=== PATIENT | male | born 1955 | race Caucasian/White ===

== ENCOUNTER 2021-02-12 12:46 | Inpatient (IN) | payer OTHER, MEDICARE, SELFPAY ==
[2021-02-12] VITALS (13 sets, daily range): BP systolic 92–140; BP diastolic 65–113; PULSE 102–132; RESP 18–24; TEMP 36.6–36.9; O2SAT 90–97; BMI 29.7
--- NOTE | ~2021-02-12 | XR_ITS ---
EXAMINATION: XR chest 1V portable DATE: 02/13/2021 05:32 INDICATION: New oxygen requirement. TECHNIQUE: A single frontal view of the chest was obtained. COMPARISON: Chest single view 02/12/2021 FINDINGS: There are interstitial opacities and heterogeneous airspace opacities throughout the lungs bilaterally. No pleural effusion or pneumothorax. Cardiomegaly is noted. IMPRESSION: 1. Stable diffuse lung disease, consistent with pulmonary edema versus pneumonia. 2. Cardiomegaly. Reviewed, dictated and finalized at location A. IMPRESSION: 1. Stable diffuse lung disease, consistent with pulmonary edema versus pneumoni a. 2. Cardiomegaly.
--- NOTE | ~2021-02-12 | XR_ITS ---
EXAMINATION: XR chest 2V EXAM DATE: 02/15/2021 10:49 INDICATION: Volume overload . TECHNIQUE: Frontal and lateral projections of the chest obtained and reviewed. Comparison is made to prior examination from 02/13/2021, 02/12. FINDINGS: Again there is cardiomegaly and pulmonary vascular congestion. There has been interval impr ovement in previously seen diffuse airspace disease which could've been edema or pneumonia, please cl inically correlate. No pneumothorax or pleural effusion. IMPRESSION: 1. Improving edema or pneumonia. 2. Cardiomegaly. Reviewed, dictated and finalized at location A.
--- NOTE | ~2021-02-12 | US_ITS ---
EXAMINATION: US arterial duplex LE RT EXAM DATE: 02/15/2021 11:12 INDICATION: Hematoma post cardiac cath Post cardiac cath. Pseudoaneurysm evaluation. TECHNIQUE: Multiple grayscale and Doppler images of the inguinal common femoral artery catheterizatio n site were obtained (by a technologist who performed the scan) and subsequently reviewed. There is no prior study for comparison. FINDINGS: Right common femoral vein has expected triphasic high resistance waveform. Some heterogeneous regiona l fat stranding without focal hematoma, or pseudoaneurysm. There is a right inguinal lymph node annot ated area of lump measuring 1.3 x 0.8 x 1.2 cm. This is probably reactive. IMPRESSION: 1. Small reactive right inguinal lymph node. 2. Normal right common femoral Doppler signal without pseudoaneurysm. Reviewed, dictated and finalized at location A.
--- NOTE | ~2021-02-12 | XR_ITS ---
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 TECHNIQUE: Portable AP frontal chest x-ray was obtained. There is no prior study for comparison. FINDINGS: There is cardiomegaly and pulmonary vascular congestion. Diffuse indistinct reticulation, e shiva or pneumonia. No sizable pleural effusion. No pneumothorax. There are bony degenerative changes. IMPRESSION: 1. Cardiomegaly, pulmonary vascular congestion. 2. Diffuse airspace disease, edema or pneumonia. Reviewed, dictated and finalized at location B.
--- NOTE | 2021-02-12 12:43 | PC.NURSE ---
1243 Pt arrives. section laborer at bedside. 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 Two hours prior to calling EMS (11 AM), pt had chest pain that is progressively worse. Now radiating down left arm. Pain between shoulder blades comes and goes. EMS reports elevation in V3 and V4. Hx of [place] and TIAs. Gave 324 aspirin, 2 sprays of nitro with no relief. Hx of previous MIs 1246: EKG taken. Reviewed by laboratory machinist. Vitals: HR 120, Spo2 97%, RR 20, BP: 140/113 1248: Pt reporting severe chest pain, pain in shoulders, pain down his arms. Pt unsure of year of previous heart attack. 1250: Pt being prepped by section laborer. Denies allergies.
--- NOTE | 2021-02-12 12:51 | ECG_ITS ---
Measurements Intervals [place] Rate: 117 P: -48 MD: 148 QRS: 132 QRSD: 151 T: 44 QT: 358 QTc: 501 Interpretive Statements SINUS TACHYCARDIA INDETERMINATE AXIS RIGHT BUNDLE BRANCH BLOCK ANTEROLATERAL ST ELEVATION MYOCARDIAL INFARCT- ACUTE INFERIOR INFARCT, AGE INDETERMINATE BASELINE ARTIFACT- II, III, AVF, V4-V6 ATYPICAL ECG Electronically Signed On 02-12-2021 13:04:30 CDT by Mino Crisostomo D.O.
--- NOTE | 2021-02-12 12:52 | ED.CHESTPAIN ---
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 [place] History of previous [place] years ago, does not believe he had any stents, does not take any medications Here for chest pain Prehospital EKGs consistent with anterior STEMI and was met by Rotor Casting Machine Setup Operator and cardiology on arrival Reported onset of severe chest pain about 2 hours ago while he was sitting in his truck getting ready to take off Radiates to his back and a little bit to his arm Mildly short of breath, mildly nauseated, not diaphoretic Related Data Allergies Allergy/AdvReac Type Severity Reaction Status Date / Time No Known Allergies Allergy Verified 02/12/21 12:51 Review of Systems Review of Systems: ROS unobtainable: Yes unobtainable due to medical condition Cardiovascular: Cardiovascular: Reports chest pain and Reports radiating jaw, neck or arm pain Respiratory: Respiratory: Reports dyspnea Exam Const: General: alert Orientation/consciousness: patient oriented x3 Chest: Chest palpation & inspection: normal inspection of the chest Other: No scar Resp: Effort & Inspection: tachypneic Auscultation: clear to auscultation bilaterally Cardio: Rate: tachycardic Skin: General skin exam: normal color and no pallor Neuro: General: patient oriented x3 and moves all extremities Extrem: General: normal to inspection and no edema Course Course Emergency Course: Rotor Casting Machine Setup Operator here, EKG confirms anterolateral ST elevation, consented and promptly off to the Rotor Casting Machine Setup Operator MDM - Chest Pain ECG Data EKG #1: EKG Interpretation: tachycardia, sinus rhythm, ST elevation (Anterolateral), RBBB, normal QT and NL axis Critical Care Time Critical Care Time Critical Care Time: Yes Total Critical Care Time: 20 Discharge Plan Discharge Clinical Impression: ST elevation myocardial infarction (STEMI) Patient Disposition: Still a Patient Condition: Critical
--- NOTE | 2021-02-12 12:56 | PC.NURSE ---
PT TAKEN TO CORE PASTER PER RN'S X2.
[2021-02-12 13:01] LABS: Basophils Percent Auto 0.3 % (0.2-1.2); Eosinophils Percent Auto 0.1 % (0-4.4); Hematocrit 46.2 % (42.0-52.0); Hemoglobin 16.1 g/dL (14.0-18.0); Immature Granulocyte Absolute 0.05 K/mm3 (0.00-0.031); Immature Granulocyte Percent A 0.4 % (0-0.5); Lymphocytes Absolute Auto 0.76 K/mm3 (0.9-3.2); Lymphocytes Percent Auto 6.4 % (18.3-44.2); Mean Corpuscular HGB Conc 34.8 g/dl (32-36); Mean Corpuscular Hemoglobin 32.7 pg (26-34); Mean Corpuscular Volume 93.9 fl (80-100); Mean Platelet Volume 9.6 fl (7.4-10.4); Monocytes Absolute Auto 0.6 K/mm3 (0.1-0.6); Monocytes Percent Auto 4.8 % (2.6-8.5); Neutrophils Absolute Auto 10.5 K/mm3 (1.3-6.7); Platelet Count Result 213 k/mm3 (150-375); Red Blood Count 4.92 M/mm3 (4.6-6.20); Red Cell Distribution Width 13.4 % (11.5-14.5); White Blood Count 11.9 K/mm3 (4.5-10.0)
[2021-02-12 13:13] LABS: Alanine Aminotransferase 23 U/L (4-50); Albumin Level 4.4 g/dL (3.5-5.1); Alkaline Phosphatase 69 U/L (38-126); Anion Gap 11 mmol/L (8-16); Aspartate Amino Transferase 66 U/L (17-59); Bilirubin,Total 0.6 mg/dL (0.2-1.3); Blood Urea Nitrogen 9 mg/dL (9-20); Calcium 9.1 mg/dL (8.4-10.2); Carbon Dioxide 25 mmol/L (22-30); Chloride 102 mmol/L (98-107); Cholesterol 218 mg/dL (0-200); Estimated Glomerular Filt Rate > 60; Glucose 133 mg/dL (65-110); HDL Direct 51 mg/dL; Potassium 3.4 mmol/L (3.4-5.0); Sodium 138 mmol/L (137-145); Triglycerides 63 mg/dL (<150)
[2021-02-12 13:24] LABS: LDL Cholesterol Direct 149 mg/dL
[2021-02-12 13:31] LABS: INR 1.6; Prothrombin Time 18.8 Seconds (11.1-14.7)
[2021-02-12 13:32] LABS: Partial Thromboplastin Time 74.5 SECONDS (22.3-36.8)
--- NOTE | 2021-02-12 14:26 | ECG_ITS ---
Measurements Intervals [place] Rate: 120 P: 30 OR: 165 QRS: 177 QRSD: 148 T: 35 QT: 335 QTc: 475 Interpretive Statements SINUS TACHYCARDIA RIGHT AXIS DEVIATION RIGHT BUNDLE BRANCH BLOCK EXTENSIVE ANTERIOR INFARCT, AGE INDETERMINATE INFERIOR INFARCT, AGE INDETERMINATE ABNORMAL ECG Electronically Signed On 02-12-2021 16:00:40 CDT by Mino Crisostomo D.O.
--- NOTE | 2021-02-12 14:31 | PM.IMHP ---
H&P: HPI History of Present Illness Date/Time: 02/12/21 14:31 Chief Complaint: chest pain Narrative: this is a 66-year-old man who is unknown to be prior to this encounter. I am meeting him in the emergency room as he was brought in by ambulance with the diagnosis of acute ST-elevation TX. 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 EMS was called to the scene where ECG in the field shows sinus tachycardia, right bundle branch block and anterior ST segment elevation. As I meet him in the emergency room he is in significant distress with chest pain and offers no other complaints. The patient states that he has a history of previous myocardial infarction many years ago that was treated in [place] where he resides but strangely he tells me he never had a coronary angiogram performed or any revascularization procedure of any sort. We do not have a obviously have any of those records at the time of this emergency. He states he takes no medication of any kind he is a nonsmoker and denies any knowledge of hypertension and diabetes he has no idea about his lipid status. Review of Systems Review of Systems: ROS unobtainable: Yes unobtainable due to medical condition Meds Home Medications and Allergies Allergies Allergy/AdvReac Type Severity Reaction Status Date / Time No Known Allergies Allergy Verified 02/12/21 12:51 Vital Signs Vital Signs - 24 hr 02/12/21 12:57 Pulse Rate 120 H Respiratory Rate 20 Blood Pressure 140/113 H Pulse Oximetry 97 Exam Const: General: in distress and uncomfortable Other: Well-developed well-nourished overweight white male appearing his stated age in significant distress with chest pain HENMT: Mouth: Yes moist mucous membranes Eyes: Sclera: sclerae normal Pupils: Equal, round and reactive pupils present Neck: Neck: supple and no JVD Other: carotid pulses are intact free of bruits Resp: Effort & Inspection: normal respiratory effort Auscultation: clear to auscultation bilaterally Cardio: Rate: regular rate Rhythm: regular rhythm Other: PMI difficult to palpate there is 2nd heart sounds are normal S4 is evident very soft systolic murmur does not radiate from the left sternal border GI: GI Palp: Yes Soft to palpation Auscultation: normal bowel sounds Skin: General skin exam: normal color Neuro: Cognition (Neuro): normal cognition Other: patient agitated and anxious because of chest pain Extrem: General: normal to inspection H&P: Results Labs Labs: Short CBC 02/12/21 Range/Units 12:55 WBC 11.9 H (4.5-10.0) K/mm3 Hgb 16.1 (14.0-18.0) g/dL Hct 46.2 (42.0-52.0) % Plt Count 213 (150-375) k/mm3 BMP 02/12/21 12:55 Sodium 138 Potassium 3.4 Chloride 102 Carbon Dioxide 25 BUN 9 Creatinine 0.90 Glucose 133 H Calcium 9.1 Cardiac Enzymes 02/12/21 Range/Units 12:55 Troponin I 3.740 H* (0.000-0.034) ng/mL Liver Function 02/12/21 Range/Units 12:55 Total Bilirubin 0.6 (0.2-1.3) mg/dL AST 66 H (17-59) U/L ALT 23 (4-50) U/L Alkaline Phosphatase 69 (38-126) U/L Albumin 4.4 (3.5-5.1) g/dL Assessment and Plan Additional Plan this is a 66-year-old man with an uncertain cardiac history as detailed above presenting with recent onset of chest pain being brought in with ECG evidence acute anterior wall infarction. Plans are being made for emergency angiography and revascularization at this time. Beto Pandya MD [facility]
--- NOTE | 2021-02-12 14:35 | PC.NURSE ---
Patient arrived via bed with RN x2 to beside. Right groin site assessed with pathology laboratory director RN. No issues noted.
--- NOTE | 2021-02-12 14:35 | WPDCARDPROC ---
Cardiac Cath Procedure Note Date of procedure:: 02/12/21 Performing physician:: Beto Pandya MD Indication:: acute anterior wall W[place] Brief clinical history:: this is a 66-year-old man who reports a history of previous [place] this validity of which is in question. He started to experience chest pain about an hour ago was brought in by ambulance with an ECG that is compatible with acute anterior wall injury. Troponin in the emergency room was already elevated at over 3.0 indicating this is probably not a hyperacute Event. In this setting emergency angiography and revascularization have been recommended Procedure Procedure performed:: emergency coronary angiogram emergency PCI balloon angioplasty, extraction thrombectomy and (DIEGO) to the LAD left ventriculography Sedation/Medication given:: fentanyl 50 mg Versed 2 mg case start time 1:05 p.m. case end time 2:07 p.m. sedation provided by Erma Reich RN, trained observer Access site:: right femoral artery Estimated blood loss:: 20-30 cc Procedure note:: patient was brought to the cardiac catheterization lab in the emergency setting described above the right femoral triangle was prepped and draped in the usual fashion. Using the modified Seldinger technique the femoral artery was punctured and a 6 [place]ian vascular sheath was placed. I then used a 5 [place]ian JR4 catheter to engage inject the right coronary artery and then a 5 [place] FL4 catheter to engage inject the left coronary artery. The cineangiograms were then reviewed and PCI of the LAD was recommended and carried out as detailed below. Prior to PCI the patient received Brilinta 180 mg orally. He had been given aspirin in the emergency room. He also was systemically anticoagulated with bolus and infusion of Angiomax. During the procedure he also was given intracoronary, intravenous and started on IV infusion of Integrilin. The patient following PCI had left ventriculography performed in left-sided hemodynamics measured using a 5 [place]ian angled pigtail catheter. 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 There was no evidence of a groin hematoma at the end of the case. Findings:: Hemodynamics: Central aortic pressure was 136/75 left ventricle 138/5 end-diastolic pressure 34. There was no gradient on pullback across the aortic valve. Left ventricle: The LV is moderately enlarged the apical anterior wall and apex appear to be dyskinetic. The catheter was in the basal segment of the ventricle full filling of apex was not ideal. Global ejection fraction appears to be in the vicinity of 40%. The left main coronary artery is large in caliber and appears to be nicely patent the left anterior descending is very large and diffusely diseased with ectatic dilatation in the proximal 1/3. There are couple of small diffusely diseased diagonal branches in this segment. Just after this the LAD becomes much more normal in diameter and is 100% occluded in the midportion. The circumflex is a medium caliber artery giving rise to 3 marginal branches. The 1st of these are very high and has moderate stenosis 1 segment where there is about 50-60% stenosis. The 2nd and 3rd marginal branches are remarkable for minimal luminal irregularities but no significant lesions. The right coronary artery is huge in caliber is diffusely ectatic lead dilated because of atherosclerosis and ectatic dilatation. There however is no functionally significant stenosis in the RCA proper or the distal PDA and PL branches. Intervention: The left coronary artery was engaged using a 6 [place]ian CLS 3.5 guiding catheter. I used a standard 0.014 BMW coronary guidewire to probe the occlusion and traverse the wire down into the apical portion of the LAD. I then balloon dilated the vessel using a 2.5 x 20 mm
--- NOTE | 2021-02-12 14:36 | WPDCNINT ---
Assessment and Plan Assessment and plan (1) ST elevation myocardial infarction (STEMI): Code(s): I21.3 - ST elevation (STEMI) myocardial infarction of unspecified site Status: Acute Assessment and Plan: Status post complicated PCI of LAD and stent placed ICU telemetry monitoring Aspirin, Brilinta Coreg losartan and Crestor Currently on Integrilin infusion as per cardiology Patient still have some residual pain. I will use p.r.n. nitroglycerin and see patient response and will consider starting patient on nitroglycerin infusion. Also add p.r.n. morphine (2) CHF (congestive heart failure): Code(s): I50.9 - Heart failure, unspecified Status: Acute Assessment and Plan: LV gram during cardiac catheterization showed impaired systolic function and elevated LVEDP (3) Pulmonary edema: Code(s): J81.1 - Chronic pulmonary edema Status: Acute Assessment and Plan: Chest x-ray shows pulmonary edema Lasix ordered Check BNP (4) Ischemic cardiomyopathy: Code(s): I25.5 - Ischemic cardiomyopathy Status: Acute Additional Plan DVT prophylaxis -currently on Integrilin infusion Code Status - Full Code [place] Consult Note Consult date: 02/12/21 Time Seen: 14:30 HPI: Jeancarlos Goff 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 Pain started while he was sitting in the truck. Pain was in center of his chest, 10/10 severe, pressure in quality, radiated to his left arm and back. Pain was associated with nausea vomiting and dizziness. No shortness of breath or palpitation. He states he had 2 episodes of vomiting in the truck In ED patient was diagnosed with anterior acute ST segment elevation [place]. he is EKG showed anterior ST segment elevation and right bundle branch block along with elevated troponin. patient was taken to cardiac catheterization lab where he underwent prolonged and complicated procedure involving PCI of his LAD which resulted in open vessel but less than ideal flow. Patient now admitted to ICU for further evaluation and management. At this time patient states the pain in his chest has completely resolved but he still has pain in the back in between his shoulder blades. Pain is 8/10 severe but is improving as compared to presentation. Still has some nausea but no vomiting since coming to hospital. Denies any other complaints. All other systems were reviewed and were negative Home medications-none Past medical history-patient states he had episode of chest pain and was taken to hospital where a stress test on although he is not sure. Currently he is not on any treatment or medications Past surgical history-inguinal hernia repair and shoulder ligament tear repair Social history-denies smoking, no drug use in 70s, occasional alcohol, vaccinated against COVID-19 Family history-mother had some sort of cancer and father had stroke Review of Systems Review of Systems: All systems reviewed & are unremarkable except as noted in HPI and below (HPI) Meds Home Medications and Allergies Allergies Allergy/AdvReac Type Severity Reaction Status Date / Time No Known Allergies Allergy Verified 02/12/21 12:51 Vital Signs Vital Signs - 24 hr 02/12/21 12:57 Pulse Rate 120 H Respiratory Rate 20 Blood Pressure 140/113 H Pulse Oximetry 97 Exam Narrative: General: Pt is alert awake and in NAD Lungs/Chest: Trachea central Clear BS B/L, bibasilar crackles., no wheezing. Cardiac: RRR. Normal S1 S2. No murmurs Circulation: Pedal pulses are intact and symmetrical. Abdomen: Normal bowel sounds.. Soft. NT. ND. Extremities: No clubbing, cyanosis or edema. Warm, sheath in right femoral area, trace pitting edema in both legs : Weber in place Neurologic: Follows commands. Moves all 4 extremities PERRL Skin: No Rash HEENT: Poor dentition Results Labs CBC & Chem 7: 02/12/21 12:55 02/12/21 12:55
--- NOTE | 2021-02-12 14:50 | ADMGEN ---
This patient, Jeancarlos Goff, was admitted to Intensive Care Unit-10. Patient/family oriented to hospital policies and general routines including ID bracelet, bed and alarms, visiting hours, pain management, procedures, bathroom and other care routines, personal items, smoking policy, room service/diet, and visiting hours. Information on how to activate the Rapid Response Team has been discussed. Patient/Family are encouraged to report perceived risks to care and to ask questions if they do not understand what they are told or what they should do.
[2021-02-12] MEDS: NITROGLYCERIN SL 0.4 MG TABLET SUBLINGUAL (15:07)
[2021-02-12] MEDS: FUROSEMIDE INJ 40 MG/4 ML VIAL IV PUSH (15:07)
[2021-02-12] MEDS: SODIUM CHLORIDE 0.9% IV 1,000 ML 125 ML IV CONT (15:11)
[2021-02-12 15:36] LABS: Cholesterol 192 mg/dL (0-200); HDL Direct 46 mg/dL; Triglycerides 57 mg/dL (<150)
[2021-02-12 15:45] LABS: NT Pro B Type Natriuretic Pept 339 pg/mL (5-100)
[2021-02-12 15:47] LABS: LDL Cholesterol Direct 134 mg/dL
[2021-02-12] MEDS: ONDANSETRON INJ 4 MG/2 ML VIAL IV PUSH (15:50)
--- NOTE | 2021-02-12 15:50 | PC.NURSE ---
Dr. Pandya notified of hematoma and bleeding at incision site.
[2021-02-12] MEDS: MORPHINE SULFATE (*CRX) 4 MG/ML INJ IV PUSH (15:58)
[2021-02-12 18:48] LABS: Troponin I > 80.000 ng/mL (0.000-0.034)
--- NOTE | 2021-02-12 19:31 | PC.NURSE ---
Updated Patricia on patient condition.
[2021-02-12] MEDS: TICAGRELOR 90 MG TABLET PO (21:42)
[2021-02-12] MEDS: carvediloL 6.25 MG TABLET PO (21:42)
[2021-02-12] MEDS: MORPHINE SULFATE (*CRX) 2 MG/ML INJ IV PUSH (21:48)
[2021-02-13] VITALS (16 sets, daily range): BP systolic 87–118; BP diastolic 49–76; PULSE 75–94; RESP 18–24; TEMP 36.2–37.3; O2SAT 91–100
--- NOTE | 2021-02-13 | ECHO_ITS ---
Patient Info Name: Jeancarlos Goff Age: 66 years : 1955 Gender: Male Ht: 69 in Wt: 201 lbs BSA: 2.13 m2 HR: 88 bpm BP: 97 / 70 mmHg Heart Rhythm: Sinus Rhythm Technical Quality: Good Exam Date: 02/13/2021 9:44 AM Exam Location: [facility] Patient Status: Inpatient Admit Date: 02/12/2021 Staff Ordering Physician: Jonnathan Mcmullen MD Wet End Supervisor: Nicole Malcolm RDCS Attending Provider: Beto Pandya MD Exam Type: CA echo doppler color flow Study Info Indications - STEMI Complete two-dimensional, color flow and Doppler transthoracic echocardiogram is performed. Summary 1. Complete two-dimensional, color flow and Doppler transthoracic echocardiogram is performed. 2. Left ventricular systolic function is severely reduced, estimated at 25-30%. 3. Left ventricular chamber dimension is mildly enlarged. 4. The anterior wall, anteroseptal segment apex and apical lateral rosales are akinetic. 5. There is trace mitral valve regurgitation. 6. The anterior mitral valve leaflet is thickened. Left Ventricle Left ventricular chamber dimension is mildly enlarged. Left ventricular systolic function is severely reduced, estimated at 25-30%. The left ventricular diastolic function is grade I diastolic dysfunction. The anterior wall, anteroseptal segment apex and apical lateral rosales are akinetic. Right Ventricle Right ventricular chamber dimension is normal. Left Atria Left atrial chamber dimension is mildly enlarged. Right Atria Right atrial chamber dimension is normal. Aortic Valve The aortic valve is trileaflet. There is mild aortic valve sclerosis. Pulmonic Valve The pulmonic valve is not well visualized. Mitral Valve The mitral valve has thickened leaflets. There is trace mitral valve regurgitation. The anterior mitral valve leaflet is thickened. Tricuspid Valve The tricuspid valve leaflets are normal. Pericardium/Pleural The pericardium appears normal. Aorta The aortic root size at the sinus of Valsalva is normal. Left Ventricular Outflow Tract Name Value Normal LVOT 2D LVOT Diameter 2.0 cm LVOT Doppler LVOT Peak Gradient 3 mmHg LVOT Mean Gradient 2 mmHg LVOT VTI 18 cm LVOT VTI/AV VTI Ratio 1.1 LVOT Stroke Volume 55 ml LVOT CO 4.6 l/min LVOT CI 2.1 l/min/m2 Pulmonic Valve Name Value Normal RVOT Doppler RVOT Peak Gradient 2 mmHg PV Doppler PV Peak Gradient 2 mmHg Mitral Valve Name
--- NOTE | 2021-02-13 05:11 | ECG_ITS ---
Measurements Intervals [place] Rate: 83 P: 6 [place]: 164 QRS: -59 QRSD: 157 T: 56 QT: 406 QTc: 479 Interpretive Statements SINUS RHYTHM FREQUENT ATRIAL PREMATURE COMPLEXES INDETERMINATE AXIS RIGHT BUNDLE BRANCH BLOCK EXTENSIVE ANTERIOR INFARCT, AGE INDETERMINATE INFERIOR INFARCT, AGE INDETERMINATE ABNORMAL ECG Electronically Signed On 02-13-2021 9:13:15 CDT by Mino Crisostomo D.O.
--- NOTE | 2021-02-13 06:22 | P.CDI_ITS ---
CDI Query Clarification Request -CHF, unspecified has been documented -EF 40% per cardiac cath report -02/12 CXR impression: Cardiomegaly, pulmonary vascular congestion; diffuse airspace disease, edema or pneumonia. -Lasix 40mg IV X1 given 02/12 Please further specify type and acuity of CHF: * Systolic *Acute * Diastolic *Chronic * Both systolic and diastolic *Acute on Chronic * Unable to determine *Unable to determine <Genie Olivo RN - Last Filed: 02/13/21 06:26>
[2021-02-13 08:41] LABS: Hematocrit 39.5 % (42.0-52.0); Hemoglobin 13.7 g/dL (14.0-18.0); Mean Corpuscular HGB Conc 34.7 g/dl (32-36); Mean Corpuscular Volume 95.2 fl (80-100); Platelet Count Result 203 k/mm3 (150-375); Red Blood Count 4.15 M/mm3 (4.6-6.20); White Blood Count 13.8 K/mm3 (4.5-10.0)
[2021-02-13] MEDS: ASPIRIN 81 MG CHEWABLE TABLET PO (08:58)
[2021-02-13] MEDS: carvediloL 6.25 MG TABLET PO ×2 (08:58→22:38)
[2021-02-13] MEDS: PANTOPRAZOLE 40 MG TABLET PO (09:00)
[2021-02-13] MEDS: ROSUVASTATIN 10 MG TABLET 20 MG PO (09:01)
[2021-02-13] MEDS: TICAGRELOR 90 MG TABLET PO ×2 (09:01→22:38)
[2021-02-13] MEDS: LOSARTAN POTASSIUM 25 MG TABLET PO (09:02)
[2021-02-13 09:41] LABS: Alanine Aminotransferase 68 U/L (4-50); Albumin Level 3.7 g/dL (3.5-5.1); Alkaline Phosphatase 53 U/L (38-126); Anion Gap 7 mmol/L (8-16); Aspartate Amino Transferase 340 U/L (17-59); Bilirubin,Total 1.2 mg/dL (0.2-1.3); Blood Urea Nitrogen 16 mg/dL (9-20); Calcium 8.6 mg/dL (8.4-10.2); Carbon Dioxide 31 mmol/L (22-30); Chloride 99 mmol/L (98-107); Estimated CRCL calculation 71 ml/min; Estimated Glomerular Filt Rate > 60; Glucose 120 mg/dL (65-110); Potassium 3.8 mmol/L (3.4-5.0); Sodium 137 mmol/L (137-145)
--- NOTE | 2021-02-13 09:41 | WPDINTPN ---
Progress Note: A&P Assessment and Plan (1) ST elevation myocardial infarction (STEMI): Code(s): I21.3 - ST elevation (STEMI) myocardial infarction of unspecified site Status: Acute Assessment and Plan: Status post complicated PCI of LAD and stent placed ICU telemetry monitoring Aspirin, Brilinta Coreg losartan and Crestor Sheath was removed yesterday Patient still have some residual pain. I will use p.r.n. nitroglycerin and p.r.n. morphine (2) CHF (congestive heart failure): Code(s): I50.9 - Heart failure, unspecified Status: Acute Assessment and Plan: Systolic. Acute LV gram during cardiac catheterization showed impaired systolic function and elevated LVEDP (3) Pulmonary edema: Code(s): J81.1 - Chronic pulmonary edema Status: Acute Assessment and Plan: Chest x-ray shows pulmonary edema Will give another dose of Lasix today BNP was 300+ (4) Ischemic cardiomyopathy: Code(s): I25.5 - Ischemic cardiomyopathy Status: Acute (5) Hematoma: Code(s): T14.8XXA - Other injury of unspecified body region, initial encounter Status: Acute Assessment and Plan: Small hematoma and bruise at the site of catheterization Hemoglobin reviewed this morning Will recheck again in 12 hours Additional Plan DVT prophylaxis -SCDs, patient will likely be able to ambulate if unable to will start Lovenox Code Status - Full Code FELIPA Weber, PT OT, incentive spirometry, up in chair Transfer out of ICU today Subjective Date/time seen: 02/13/21 09:41 Patient states he feels better today as compared to yesterday and his pain has improved but is still 3/10 in his back. He states he had nausea yesterday but currently not any issues. No chest pain or shortness of breath. He slept okay and is eager to eat his breakfast this morning. Denies any other complaints All other systems were reviewed and were negative. Sheath was removed overnight and he had a small hematoma around that area Review of Systems Review of Systems: All systems reviewed & are unremarkable except as noted in HPI and below (HPI) Exam Narrative: General: Pt is alert awake and in NAD Lungs/Chest: Trachea central Clear BS B/L, bibasilar crackles., no wheezing. Cardiac: RRR. Normal S1 S2. No murmurs Circulation: Pedal pulses are intact and symmetrical. Abdomen: Normal bowel sounds.. Soft. NT. ND. Extremities: No clubbing, cyanosis or edema. Warm, small bruise and very small hematoma at the site of she. : Weber in place Neurologic: Follows commands. Moves all 4 extremities PERRL Skin: No Rash HEENT: Poor dentition Objective Data Vital Signs Vital Signs: Vital Signs - 24 hr 02/12/21 12:57 02/12/21 14:41 02/12/21 15:11 Temperature 36.9 C Pulse Rate 120 H 118 H 126 H Respiratory Rate 20 24 H 18 Blood Pressure 140/113 H 122/86 106/83 Pulse Oximetry 97 92 90 02/12/21 15:30 02/12/21 16:00 02/12/21 16:11 Temperature 36.6 C Pulse Rate 120 H 132 H 117 H Respiratory Rate 18 24 H 22 H Blood Pressure 105/85 92/65 L 94/73 L Pulse Oximetry 90 91 91 02/12/21 17:00 02/12/21 18:00 02/12/21 18:30 Temperature Pulse Rate 115 H 111 H 113 H Respiratory Rate 21 H 19 20 Blood Pressure 107/76 104/85 97/74 L Pulse Oximetry 91 91 93 02/12/21 19:00 02/12/21 20:00 02/12/21 21:42 Temperature 36.6 C 36.8 C Pulse Rate 108 H 107 H 110 H Respiratory Rate 23 H 21 H Blood Pressure 111/83 105/82 Pulse Oximetry 94 94 02/12/21 22:00 02/13/21 00:00 02/13/21 02:00 Temperature 36.2 C L Pulse Rate 104 H 90 79 Respiratory Rate 21 H 20 18 Blood Pressure 98/80 L 90/70 L 99/61 L Pulse Oximetry 93 94 94 02/13/21 04:00 02/13/21 05:52 02/13/21 08:00 Temperature 36.8 C 36.8 C 36.5 C Pulse Rate 87 89 86 Respiratory Rate 21 H 21 H 18 Blood Pressure 91/68 L 97/70 L 87/68 L Pulse Oximetry 92 91 96 02/13/21 08:58 02/13/21 09:02 Temperature Pulse Rate 84 84 Respiratory Rate
[2021-02-13] MEDS: FUROSEMIDE INJ 40 MG/4 ML VIAL IV PUSH (10:36)
[2021-02-13 10:49] LABS: EDCOVIDSCREEN Negative (Negative)
--- NOTE | 2021-02-13 12:54 | PM.PNCARD ---
Progress Note: A&P Assessment and Plan (1) ST elevation myocardial infarction (STEMI): Code(s): I21.3 - ST elevation (STEMI) myocardial infarction of unspecified site Status: Acute Assessment and Plan: Presentation to the emergency department with acute onset of severe chest pain. EKG on presentation was compatible with acute anterior wall injury. He was taken to the cath lab tech emergently and was found to have 100% occlusion in the midportion of the LAD. There is also mild disease of proximal OM circumflex branch. The LAD lesion was addressed with balloon dilation, extraction thrombectomy, and a series of overlapping drug-eluting stents. Continue aspirin 81 mg daily Continue Brilinta 90mg b.i.d. Continue carvedilol 6.25 mg q.12 Continue losartan 25mg daily Continue rosuvastatin (2) CHF (congestive heart failure): Code(s): I50.9 - Heart failure, unspecified Status: Acute Assessment and Plan: Clinically does not appear to be in decompensated heart failure. Evidence of pulmonary edema today on chest x-ray. Was given 1 dose of IV Lasix. Echocardiogram showed severely reduced LV systolic dysfunction with an ejection fraction of 25-30%. He has grade 1 diastolic dysfunction. There is akinesis of the anterior wall, anteroseptal segment apex and apical lateral rosales. Ideally, I would like to start him on Entresto. However, his blood pressure does not allow for that right now. Consider starting this if blood pressure allows. Subjective Date/time seen: 02/13/21 12:54 cardiology follow-up Date of service 02/13/2021: Patient feels okay today. He is complaining of cough. Denies any shortness of breath, chest pain, and dizziness. On 3 L oxygen. Appropriate to transfer to IMU level of care. Review of Systems Review of Systems: All systems reviewed & are unremarkable except as noted in HPI and below Exam Const: General: comfortable and no acute distress HENMT: Head: normal to inspection Mouth: Yes moist mucous membranes Teeth and gingiva: poor dentition Eyes: General: appearance normal, both eyes and all related structures Sclera: sclerae normal Pupils: Equal, round and reactive pupils present Neck: Neck: supple and no JVD Other: carotid pulses are intact free of bruits Resp: Effort & Inspection: normal respiratory effort Auscultation: clear to auscultation bilaterally, no crackles and no rales Cardio: Rate: regular rate Rhythm: regular rhythm Peripheral pulses: Peripheral pulses 2+ throughout GI: Auscultation: normal bowel sounds Skin: General skin exam: normal color Other: Right groin left heart catheterization site with hematoma. No bleeding, swelling, pain, bruit Neuro: General: patient oriented x3 Cranial nerves: Yes Equal, round and reactive pupils present Cognition (Neuro): normal cognition Other: patient agitated and anxious because of chest pain Extrem: General: normal to inspection Right lower extremity: no edema Left lower extremity: no edema Psych: Appearance: grossly normal Mental Status: mental status grossly normal Objective Data Vital Signs Vital Signs: Vital Signs - 24 hr 02/12/21 12:57 02/12/21 14:41 02/12/21 15:11 Temperature 36.9 C Pulse Rate 120 H 118 H 126 H Respiratory Rate 20 24 H 18 Blood Pressure 140/113 H 122/86 106/83 Pulse Oximetry 97 92 90 02/12/21 15:30 02/12/21 16:00 02/12/21 16:11 Temperature 36.6 C Pulse Rate 120 H 132 H 117 H Respiratory Rate 18 24 H 22 H Blood Pressure 105/85 92/65 L 94/73 L Pulse Oximetry 90 91 91 02/12/21 17:00 02/12/21 18:00 02/12/21 18:30 Temperature Pulse Rate 115 H 111 H 113 H Respiratory Rate 21 H 19 20 Blood Pressure 107/76 104/85 97/74 L Pulse Oximetry 91 91 93 02/12/21 19:00 02/12/21 20:00 02/12/21 21:42 Temperature 36.6 C 36.8 C Pulse Rate 108 H 107 H 110 H Respiratory Rate 23 H 21 H Blood Pressure 111/83 105/82 Pulse Oximetry 94 94 02/12/21 22:00 02/13
--- NOTE | 2021-02-13 15:56 | PC.NURSE ---
This patient, Jeancarlos Goff, was received from ICU on 02/13/21 at 1557. Patient/family oriented to unit policies and routines
--- NOTE | 2021-02-13 16:10 | PC.NURSE ---
This patient, Jeancarlos Goff, was transferred to [[facility]] on 02/13/21 at 1545. Personal belongings sent with patient. Report given to [SARAH Haney @ [phone] ]. Appropriate documentation sent with patient.
[2021-02-13 16:16] LABS: Hematocrit 39.6 % (42.0-52.0); Hemoglobin 13.9 g/dL (14.0-18.0); Mean Corpuscular HGB Conc 35.1 g/dl (32-36); Mean Corpuscular Hemoglobin 32.5 pg (26-34); Mean Corpuscular Volume 92.5 fl (80-100); Mean Platelet Volume 10.4 fl (7.4-10.4); Platelet Count Result 215 k/mm3 (150-375); Red Blood Count 4.28 M/mm3 (4.6-6.20); Red Cell Distribution Width 13.6 % (11.5-14.5); White Blood Count 14.2 K/mm3 (4.5-10.0)
[2021-02-13] MEDS: BENZONATATE 100 MG CAPSULE 200 MG PO (19:16)
[2021-02-14] VITALS (16 sets, daily range): BP systolic 74–88; BP diastolic 53–66; PULSE 72–95; RESP 14–26; TEMP 36.6–37.2; O2SAT 92–96
[2021-02-14] MEDS: BENZONATATE 100 MG CAPSULE 200 MG PO ×3 (04:40→21:39)
[2021-02-14 06:15] LABS: Hematocrit 34.7 % (42.0-52.0); Mean Corpuscular HGB Conc 34.6 g/dl (32-36); Mean Corpuscular Hemoglobin 32.3 pg (26-34); Mean Corpuscular Volume 93.5 fl (80-100); Platelet Count Result 173 k/mm3 (150-375); Red Blood Count 3.71 M/mm3 (4.6-6.20); Red Cell Distribution Width 13.2 % (11.5-14.5); White Blood Count 12.7 K/mm3 (4.5-10.0)
[2021-02-14 06:27] LABS: Anion Gap 4 mmol/L (8-16); Blood Urea Nitrogen 17 mg/dL (9-20); Calcium 8.2 mg/dL (8.4-10.2); Carbon Dioxide 30 mmol/L (22-30); Chloride 95 mmol/L (98-107); Estimated CRCL calculation 79 ml/min; Estimated Glomerular Filt Rate > 60; Glucose 120 mg/dL (65-110); Magnesium 1.9 mg/dL (1.6-2.3); Potassium 3.2 mmol/L (3.4-5.0); Sodium 129 mmol/L (137-145)
[2021-02-14] MEDS: LOSARTAN POTASSIUM 25 MG TABLET PO (09:05)
[2021-02-14] MEDS: ASPIRIN 81 MG CHEWABLE TABLET PO (09:05)
[2021-02-14] MEDS: carvediloL 6.25 MG TABLET PO (09:05)
[2021-02-14] MEDS: TICAGRELOR 90 MG TABLET PO (09:06)
[2021-02-14] MEDS: PANTOPRAZOLE 40 MG TABLET PO (09:06)
[2021-02-14] MEDS: ROSUVASTATIN 10 MG TABLET 20 MG PO (09:06)
--- NOTE | 2021-02-14 10:50 | PM.PNCARD ---
Progress Note: A&P Assessment and Plan (1) ST elevation myocardial infarction (STEMI): Code(s): I21.3 - ST elevation (STEMI) myocardial infarction of unspecified site Status: Acute Assessment and Plan: Presentation to the emergency department with acute onset of severe chest pain. EKG on presentation was compatible with acute anterior wall injury. He was taken to the phlebotomist lab assistant emergently and was found to have 100% occlusion in the midportion of the LAD. There is also mild disease of proximal OM circumflex branch. The LAD lesion was addressed with balloon dilation, extraction thrombectomy, and a series of overlapping drug-eluting stents. Continue aspirin 81 mg daily Due to cost, will transition from Brilinta to clopidogrel 75 mg daily Continue rosuvastatin (2) CHF (congestive heart failure): Code(s): I50.9 - Heart failure, unspecified Status: Acute Assessment and Plan: His cough is likely secondary to his CHF. Will give 20 mg of IV furosemide x1. Echocardiogram showed severely reduced LV systolic dysfunction with an ejection fraction of 25-30%. He has grade 1 diastolic dysfunction. There is akinesis of the anterior wall, anteroseptal segment apex and apical lateral rosales. (3) Hypotension: Code(s): I95.9 - Hypotension, unspecified Status: Acute Assessment and Plan: Will need to reduce his regimen. Will reduce his carvedilol 3.125 mg p.o. b.i.d. as well as reduce his losartan to 12.5 mg daily. BMP in the morning (4) Hypokalemia: Code(s): E87.6 - Hypokalemia Status: Acute Assessment and Plan: Will replace with 40 mEq p.o. x1 a potassium chloride. (5) Ischemic cardiomyopathy: Code(s): I25.5 - Ischemic cardiomyopathy Status: Acute Assessment and Plan: EF 25% Subjective Date/time seen: 02/14/21 10:50 Interval history: 66-year-old admitted because of an ST-elevation myocardial infarction. Date of service 02/14/2021: He is significantly hypotensive. He has developed a cough. He is a little dizzy earlier today. No chest pain or shortness of breath. Review of Systems Review of Systems: All systems reviewed & are unremarkable except as noted in HPI and below Constitutional: Constitutional: Denies weakness Eyes: Eyes: Denies blurry vision ENT: Denies Normal hearing present Cardiovascular: Cardiovascular: Denies chest pain and Denies leg edema Respiratory: Respiratory: Reports cough Gastrointestinal: Gastrointestinal: Denies abdominal pain Genitourinary: Genitourinary: Denies dysuria Musculoskeletal: Musculoskeletal: Denies neck pain Integumentary/Breasts: Skin/Breast: Denies dry skin Neurologic: Denies headache(s) Psychiatric: Psychiatric: Denies anxiety Endocrine: Endocrine: Denies change in body appearance Hematologic/Lymphatic: Hematologic/Lymphatic: Denies easy bleeding Allergic/Immunologic: Allergic/Immunologic: Denies GI upset with certain foods Exam Const: General: comfortable, no acute distress, in distress and uncomfortable Orientation/consciousness: patient oriented x3 Other: Well-developed well-nourished overweight white male appearing his stated age in significant distress with chest pain HENMT: Head: normal to inspection Mouth: Yes moist mucous membranes Teeth and gingiva: poor dentition Eyes: General: appearance normal, both eyes and all related structures Sclera: sclerae normal Pupils: Equal, round and reactive pupils present Neck: Neck: supple and no JVD Other: carotid pulses are intact free of bruits Resp: Effort & Inspection: normal respiratory effort Auscultation: clear to auscultation bilaterally, no crackles and no rales Cardio: Rate: regular rate Rhythm: regular rhythm Peripheral pulses: Peripheral pulses 2+ throughout Other: PMI difficult to palpate there is 2nd heart sounds are normal S4 is evident very soft systolic murmur does not radiate from the lef
[2021-02-14] MEDS: FUROSEMIDE INJ 40 MG/4 ML VIAL 20 MG IV PUSH (12:37)
[2021-02-14] MEDS: POTASSIUM CHLORIDE 20 MEQ TABLET 40 MEQ PO (12:38)
[2021-02-14] MEDS: HYDROcodone/acetaminophen (*CRX) 5-325 MG TABLET 1 TAB PO ×2 (17:27→21:38)
[2021-02-14] MEDS: carvediloL 3.125 MG TABLET PO (20:07)
[2021-02-15] VITALS (13 sets, daily range): BP systolic 79–96; BP diastolic 45–62; PULSE 73–85; RESP 16–28; TEMP 36.3–37.1; O2SAT 93–96
[2021-02-15 05:58] LABS: Hematocrit 34.2 % (42.0-52.0); Hemoglobin 11.6 g/dL (14.0-18.0); Mean Corpuscular HGB Conc 33.9 g/dl (32-36); Mean Corpuscular Hemoglobin 32.9 pg (26-34); Mean Corpuscular Volume 96.9 fl (80-100); Mean Platelet Volume 10.2 fl (7.4-10.4); Platelet Count Result 153 k/mm3 (150-375); Red Blood Count 3.53 M/mm3 (4.6-6.20); Red Cell Distribution Width 13.2 % (11.5-14.5); White Blood Count 11.7 K/mm3 (4.5-10.0)
[2021-02-15 06:12] LABS: Anion Gap 6 mmol/L (8-16); Blood Urea Nitrogen 19 mg/dL (9-20); Calcium 7.9 mg/dL (8.4-10.2); Carbon Dioxide 29 mmol/L (22-30); Chloride 96 mmol/L (98-107); Estimated CRCL calculation 71 ml/min; Estimated Glomerular Filt Rate > 60; Glucose 110 mg/dL (65-110); Potassium 3.3 mmol/L (3.4-5.0); Sodium 131 mmol/L (137-145)
[2021-02-15] MEDS: ASPIRIN 81 MG CHEWABLE TABLET PO (08:00)
[2021-02-15] MEDS: carvediloL 3.125 MG TABLET PO ×2 (08:00→22:15)
[2021-02-15] MEDS: LOSARTAN POTASSIUM 12.5 MG TABLET PO (08:01)
[2021-02-15] MEDS: ROSUVASTATIN 10 MG TABLET 20 MG PO (08:01)
[2021-02-15] MEDS: CLOPIDOGREL BISULFATE 75 MG TABLET PO (08:01)
[2021-02-15] MEDS: PANTOPRAZOLE 40 MG TABLET PO (08:01)
--- NOTE | 2021-02-15 09:56 | PM.PNCARD ---
Progress Note: A&P Assessment and Plan (1) ST elevation myocardial infarction (STEMI): Code(s): I21.3 - ST elevation (STEMI) myocardial infarction of unspecified site Status: Acute Assessment and Plan: Presentation to the emergency department with acute onset of severe chest pain. EKG on presentation was compatible with acute anterior wall injury. He was taken to the crime lab analyst emergently and was found to have 100% occlusion in the midportion of the LAD. There is also mild disease of proximal OM circumflex branch. The LAD lesion was addressed with balloon dilation, extraction thrombectomy, and a series of overlapping drug-eluting stents. Continue aspirin 81 mg daily Due to cost, will transition from Brilinta to clopidogrel 75 mg daily Continue rosuvastatin (2) CHF (congestive heart failure): Code(s): I50.9 - Heart failure, unspecified Status: Acute Assessment and Plan: His cough is likely secondary to his CHF. Cough has improved Echocardiogram showed severely reduced LV systolic dysfunction with an ejection fraction of 25-30%. He has grade 1 diastolic dysfunction. There is akinesis of the anterior wall, anteroseptal segment apex and apical lateral rosales. (3) Hypotension: Code(s): I95.9 - Hypotension, unspecified Status: Acute Assessment and Plan: Will need to reduce his regimen. Continue his carvedilol 3.125 mg p.o. b.i.d. as well as lower dose losartan to 12.5 mg daily. (4) Hypokalemia: Code(s): E87.6 - Hypokalemia Status: Acute Assessment and Plan: Will replace with an additional 40 mEq p.o. x1 a potassium chloride. (5) Ischemic cardiomyopathy: Code(s): I25.5 - Ischemic cardiomyopathy Status: Acute Assessment and Plan: EF 25% (6) Hematoma: Code(s): T14.8XXA - Other injury of unspecified body region, initial encounter Status: Acute Assessment and Plan: Will check a right lower extremity arterial Doppler in particular to his right groin post cardiac catheterization Plan tentatively is to check a arterial Doppler to the right groin. Replace his potassium and hopefully try and arrange discharge tomorrow morning and possibly flight home to [place] in the afternoon tomorrow. This will of course all depend on labs tomorrow morning and his right groin and blood pressure stability Subjective Date/time seen: 02/15/21 09:56 Interval history: 66-year-old admitted because of an ST-elevation myocardial infarction. Date of service 02/14/2021: He is significantly hypotensive. He has developed a cough. He is a little dizzy earlier today. No chest pain or shortness of breath. Date of service 02/15/2021 no chest pain, groin pain, shortness of. His right groin ecchymosis has spread Review of Systems Review of Systems: All systems reviewed & are unremarkable except as noted in HPI and below ROS unobtainable: Yes unobtainable due to medical condition Constitutional: Constitutional: Denies headache(s) and Denies weakness Eyes: Eyes: Denies blurry vision ENT: Denies Normal hearing present, Denies headache(s) and Denies neck pain Cardiovascular: Cardiovascular: Denies chest pain and Denies leg edema Respiratory: Respiratory: Reports cough Gastrointestinal: Gastrointestinal: Denies abdominal pain Genitourinary: Genitourinary: Denies dysuria Musculoskeletal: Musculoskeletal: Denies neck pain Integumentary/Breasts: Skin/Breast: Denies dry skin Neurologic: Denies Normal hearing present, Denies headache(s) and Denies weakness Psychiatric: Psychiatric: Denies anxiety Endocrine: Endocrine: Denies change in body appearance Hematologic/Lymphatic: Hematologic/Lymphatic: Denies easy bleeding Allergic/Immunologic: Allergic/Immunologic: Denies GI upset with certain foods Exam Const: General: comfortable, no acute distress, in distress and uncomfortable Orientation/consciousness: patient ori
--- NOTE | 2021-02-15 10:11 | PC.NURSE ---
[id number] Dr Lei here to see patient, US ordered on Right Groin d/t bruising and lump.
[2021-02-15] MEDS: POTASSIUM CHLORIDE 20 MEQ TABLET 40 MEQ PO (10:35)
--- NOTE | 2021-02-15 10:43 | PC.NURSE ---
Pt taken to Ultrasound
--- NOTE | 2021-02-15 11:08 | PC.NURSE ---
PT back from US
[2021-02-15] MEDS: BENZONATATE 100 MG CAPSULE 200 MG PO ×2 (13:01→19:24)
[2021-02-15] MEDS: HYDROcodone/acetaminophen (*CRX) 5-325 MG TABLET 1 TAB PO (18:44)
--- NOTE | 2021-02-15 19:51 | PC.NURSE ---
RN contacted Dr. Lei's exchange for either Robitussin or throat lozenges for cough. Patient states, The Tessalon pearls aren't working.
[2021-02-15] MEDS: BENZOCAINE/MENTHOL (*BKC) 18 EA LOZENGE 1 LOZENGE PO (20:12)
[2021-02-15] MEDS: FUROSEMIDE INJ 40 MG/4 ML VIAL 20 MG IV PUSH (20:12)
[2021-02-16] VITALS (15 sets, daily range): BP systolic 83–109; BP diastolic 55–74; PULSE 70–96; RESP 13–20; TEMP 36.2–37; O2SAT 92–97
--- NOTE | 2021-02-16 05:57 | PC.NURSE ---
At about 0529 patient had a 16 beat run of Vtach. RN printed strip and placed a copy on the chart.
[2021-02-16 06:41] LABS: Hematocrit 34.3 % (42.0-52.0); Mean Corpuscular Hemoglobin 32.3 pg (26-34); Mean Corpuscular Volume 92.2 fl (80-100); Mean Platelet Volume 11.4 fl (7.4-10.4); Platelet Count Result 205 k/mm3 (150-375); Red Blood Count 3.72 M/mm3 (4.6-6.20); Red Cell Distribution Width 13.9 % (11.5-14.5); White Blood Count 10.9 K/mm3 (4.5-10.0)
--- NOTE | 2021-02-16 06:42 | PC.NURSE ---
RN had to change the bedding this shift on patient's bed. This RN laid the bed flat after making the bed and zeroed it. When RN weighed patient this AM there was 10lb difference.
[2021-02-16 08:09] LABS: Anion Gap 7 mmol/L (8-16); Blood Urea Nitrogen 16 mg/dL (9-20); Carbon Dioxide 27 mmol/L (22-30); Chloride 98 mmol/L (98-107); Estimated CRCL calculation 79 ml/min; Estimated Glomerular Filt Rate > 60; Glucose 101 mg/dL (65-110); Magnesium 1.9 mg/dL (1.6-2.3); Potassium 3.4 mmol/L (3.4-5.0); Sodium 132 mmol/L (137-145)
[2021-02-16] MEDS: ASPIRIN 81 MG CHEWABLE TABLET PO (09:00)
[2021-02-16] MEDS: carvediloL 3.125 MG TABLET PO ×2 (09:00→20:18)
[2021-02-16] MEDS: CLOPIDOGREL BISULFATE 75 MG TABLET PO (09:01)
[2021-02-16] MEDS: LOSARTAN POTASSIUM 12.5 MG TABLET PO (09:02)
[2021-02-16] MEDS: PANTOPRAZOLE 40 MG TABLET PO (09:02)
[2021-02-16] MEDS: BENZONATATE 100 MG CAPSULE 200 MG PO ×3 (09:03→20:19)
[2021-02-16] MEDS: ROSUVASTATIN 10 MG TABLET 20 MG PO (09:03)
--- NOTE | 2021-02-16 09:41 | PM.PNCARD ---
Progress Note: A&P Assessment and Plan (1) ST elevation myocardial infarction (STEMI): Code(s): I21.3 - ST elevation (STEMI) myocardial infarction of unspecified site Status: Acute Assessment and Plan: Presentation to the emergency department with acute onset of severe chest pain. EKG on presentation was compatible with acute anterior wall injury. He was taken to the optical laboratory technician emergently and was found to have 100% occlusion in the midportion of the LAD. There is also mild disease of proximal OM circumflex branch. The LAD lesion was addressed with balloon dilation, extraction thrombectomy, and a series of overlapping drug-eluting stents. Continue aspirin 81 mg daily Due to cost, will transition from Brilinta to clopidogrel 75 mg daily Continue rosuvastatin (2) CHF (congestive heart failure): Code(s): I50.9 - Heart failure, unspecified Status: Acute Assessment and Plan: His cough is likely secondary to his CHF. Cough has improved Echocardiogram showed severely reduced LV systolic dysfunction with an ejection fraction of 25-30%. He has grade 1 diastolic dysfunction. There is akinesis of the anterior wall, anteroseptal segment apex and apical lateral rosales. (3) Hypotension: Code(s): I95.9 - Hypotension, unspecified Status: Acute Assessment and Plan: Will need to reduce his regimen. Continue his carvedilol 3.125 mg p.o. b.i.d. as well as discontinue losartan. (4) Hypokalemia: Code(s): E87.6 - Hypokalemia Status: Acute Assessment and Plan: Will replace with an additional 40 mEq p.o. x1 a potassium chloride. (5) Ischemic cardiomyopathy: Code(s): I25.5 - Ischemic cardiomyopathy Status: Acute Assessment and Plan: EF 25%. I had a lengthy discussion with him regarding his cardiomyopathy and increased risk for sudden cardiac due to this. We discussed permanent ICD in the future as well as opportunity for lifevest in the interim. Patient understands he is at increased risk for lethal arrhythmias due to cardiomyopathy and would like to proceed with being fitted for a Life Vest. Order has been placed. (6) Hematoma: Code(s): T14.8XXA - Other injury of unspecified body region, initial encounter Status: Acute Assessment and Plan: Will check a right lower extremity arterial Doppler in particular to his right groin post cardiac catheterization Doppler show any evidence of pseudoaneurysm. Additional Plan Patient would really like to go home today. I discussed with him that at this point time his hypotension is prohibitive for discharge. I have discontinued his losartan for this reason. I also talked to him about life vest which he is going to pursue. I have ordered a LifeVest and he should be fitted for that today. If his blood pressure improves by this afternoon and he receives his Life Vest it would be reasonable for him to be discharged this afternoon in order for him to take a flight home to [facility]. Subjective Date/time seen: 02/16/21 09:41 Interval history: 66-year-old admitted because of an ST-elevation myocardial infarction. Date of service 02/14/2021: He is significantly hypotensive. He has developed a cough. He is a little dizzy earlier today. No chest pain or shortness of breath. Date of service 02/15/2021 no chest pain, groin pain, shortness of. His right groin ecchymosis has spread Date of service 02/16/2021: Review of Systems Review of Systems: All systems reviewed & are unremarkable except as noted in HPI and below ROS unobtainable: Yes unobtainable due to medical condition Constitutional: Constitutional: Denies headache(s) and Denies weakness Eyes: Eyes: Denies blurry vision ENT: Denies Normal hearing present, Denies headache(s) and Denies neck pain Cardiovascular: Cardiovascular: Denies chest pain and Denies leg edema Respiratory: Respiratory: Reports cough Gastrointestinal:
[2021-02-16] MEDS: POTASSIUM CHLORIDE 20 MEQ TABLET 40 MEQ PO (11:08)
--- NOTE | 2021-02-16 19:30 | PC.NURSE ---
LEFT MESSAGE W/ [employer] REP, SHRADDHA DAVIS TO CHECK STATUS OF LIFE VEST DUE TO DISCHARGE PLAN FOR TOMORROW.
[2021-02-16] MEDS: BENZOCAINE/MENTHOL (*BKC) 18 EA LOZENGE 1 LOZENGE PO (20:19)
[2021-02-16] MEDS: HYDROcodone/acetaminophen (*CRX) 5-325 MG TABLET 1 TAB PO (20:22)
--- NOTE | 2021-02-16 20:30 | PC.NURSE ---
RETURN CALL RECEIVED FROM SHRADDHA DAVIS WITH [employer]. STATES STILL AWAITING APPROVAL FROM [facility] FOR [employer]. STATES HE WILL CHECK STATUS AGAIN AT 0800 TOMORROW AM 02/17/21 AND UPDATE PT. RN. STATES PT. CANNOT BE FITTED FOR L[employer] UNTIL ALL APPROVALS COMPLETE.
[2021-02-17] VITALS (14 sets, daily range): BP systolic 90–109; BP diastolic 57–70; PULSE 71–91; RESP 16–23; TEMP 36.3–37.2; O2SAT 93–98
[2021-02-17] MEDS: BENZOCAINE/MENTHOL (*BKC) 18 EA LOZENGE 1 LOZENGE PO ×4 (00:20→20:36)
[2021-02-17 06:11] LABS: Hematocrit 32.8 % (42.0-52.0); Hemoglobin 11.6 g/dL (14.0-18.0); Mean Corpuscular HGB Conc 35.4 g/dl (32-36); Mean Corpuscular Volume 90.6 fl (80-100); Mean Platelet Volume 10.2 fl (7.4-10.4); Platelet Count Result 191 k/mm3 (150-375); Red Blood Count 3.62 M/mm3 (4.6-6.20); Red Cell Distribution Width 13.2 % (11.5-14.5); White Blood Count 10.6 K/mm3 (4.5-10.0)
[2021-02-17 06:34] LABS: Anion Gap 4 mmol/L (8-16); Blood Urea Nitrogen 16 mg/dL (9-20); Calcium 7.7 mg/dL (8.4-10.2); Carbon Dioxide 31 mmol/L (22-30); Chloride 98 mmol/L (98-107); Estimated CRCL calculation 64 ml/min; Estimated Glomerular Filt Rate > 60; Glucose 107 mg/dL (65-110); Potassium 3.4 mmol/L (3.4-5.0); Sodium 133 mmol/L (137-145)
[2021-02-17] MEDS: ASPIRIN 81 MG CHEWABLE TABLET PO (09:14)
[2021-02-17] MEDS: PANTOPRAZOLE 40 MG TABLET PO (09:15)
[2021-02-17] MEDS: carvediloL 3.125 MG TABLET PO ×2 (09:15→20:35)
[2021-02-17] MEDS: BENZONATATE 100 MG CAPSULE 200 MG PO ×3 (09:15→20:34)
[2021-02-17] MEDS: CLOPIDOGREL BISULFATE 75 MG TABLET PO (09:15)
[2021-02-17] MEDS: ROSUVASTATIN 10 MG TABLET 20 MG PO (09:16)
--- NOTE | 2021-02-17 13:14 | PM.PNCARD ---
Progress Note: A&P Assessment and Plan (1) ST elevation myocardial infarction (STEMI): Code(s): I21.3 - ST elevation (STEMI) myocardial infarction of unspecified site Status: Acute Assessment and Plan: Presentation to the emergency department with acute onset of severe chest pain. EKG on presentation was compatible with acute anterior wall injury. He was taken to the vp lab emergently and was found to have 100% occlusion in the midportion of the LAD. There is also mild disease of proximal OM circumflex branch. The LAD lesion was addressed with balloon dilation, extraction thrombectomy, and a series of overlapping drug-eluting stents. Continue aspirin 81 mg daily Due to cost, will transition from Brilinta to clopidogrel 75 mg daily Continue rosuvastatin (2) CHF (congestive heart failure): Code(s): I50.9 - Heart failure, unspecified Status: Acute Assessment and Plan: His cough is likely secondary to his CHF. Cough has improved Echocardiogram showed severely reduced LV systolic dysfunction with an ejection fraction of 25-30%. He has grade 1 diastolic dysfunction. There is akinesis of the anterior wall, anteroseptal segment apex and apical lateral rosales. No clinical evidence of decompensated heart failure at this time. (3) Hypotension: Code(s): I95.9 - Hypotension, unspecified Status: Acute Assessment and Plan: Better with discontinuation of losartan. Continue carvedilol 3.125 mg b.i.d.. (4) Hypokalemia: Code(s): E87.6 - Hypokalemia Status: Acute Assessment and Plan: Will replace with an additional 20 mEq p.o. x1 a potassium chloride. (5) Ischemic cardiomyopathy: Code(s): I25.5 - Ischemic cardiomyopathy Status: Acute Assessment and Plan: EF 25%. I had a lengthy discussion with him regarding his cardiomyopathy and increased risk for sudden cardiac due to this. We discussed permanent ICD in the future as well as opportunity for lifevest in the interim. Patient understands he is at increased risk for lethal arrhythmias due to cardiomyopathy and would like to proceed with being fitted for a Life Vest. Order has been placed - awaiting approval from PCP for order to be approved through insurance. (6) Hematoma: Code(s): T14.8XXA - Other injury of unspecified body region, initial encounter Status: Acute Assessment and Plan: Will check a right lower extremity arterial Doppler in particular to his right groin post cardiac catheterization Doppler show any evidence of pseudoaneurysm. Subjective Date/time seen: 02/17/21 13:14 Interval history: 66-year-old admitted because of an ST-elevation myocardial infarction. Date of service 02/14/2021: He is significantly hypotensive. He has developed a cough. He is a little dizzy earlier today. No chest pain or shortness of breath. Date of service 02/15/2021 no chest pain, groin pain, shortness of. His right groin ecchymosis has spread Date of service 02/16/2021: Remains hypotensive today. Denies any chest pain, shortness of breath, dizziness. Still has significant ecchymosis to right groin but no evidence of pseudoaneurysm Date of service 02/17/2021: Continues to feel well today. Has complained of cough but denies any chest pain, shortness of breath, swelling. Awaiting LifeVest prior to discharge home. Review of Systems Review of Systems: All systems reviewed & are unremarkable except as noted in HPI and below ROS unobtainable: Yes unobtainable due to medical condition Constitutional: Constitutional: Denies headache(s) and Denies weakness Eyes: Eyes: Denies blurry vision ENT: Denies Normal hearing present, Denies headache(s) and Denies neck pain Cardiovascular: Cardiovascular: Denies chest pain and Denies leg edema Respiratory: Respiratory: Reports cough Gastrointestinal: Gastrointestinal: Denies abdominal pain Genitourinary: Genitourinary: Denies d
[2021-02-17] MEDS: POTASSIUM CHLORIDE 20 MEQ TABLET PO (14:30)
[2021-02-17] MEDS: ALBUTEROL SULFATE (*SP) AEROSOL 1 PUFF 2 PUFF INHALATION (20:25)
[2021-02-17] MEDS: HYDROcodone/acetaminophen (*CRX) 5-325 MG TABLET 1 TAB PO (20:34)
[2021-02-18] VITALS (9 sets, daily range): BP systolic 87–111; BP diastolic 48–53; PULSE 70–79; RESP 16–18; TEMP 36.9–37.1; O2SAT 91–98
[2021-02-18] MEDS: HYDROcodone/acetaminophen (*CRX) 5-325 MG TABLET 1 TAB PO (00:45)
[2021-02-18] MEDS: BENZOCAINE/MENTHOL (*BKC) 18 EA LOZENGE 1 LOZENGE PO ×2 (00:45→06:15)
[2021-02-18] MEDS: ALBUTEROL SULFATE (*SP) AEROSOL 1 PUFF 2 PUFF INHALATION ×2 (02:05→08:34)
[2021-02-18] MEDS: BENZONATATE 100 MG CAPSULE 200 MG PO (06:14)
[2021-02-18 06:45] LABS: Hematocrit 34.3 % (42.0-52.0); Hemoglobin 11.9 g/dL (14.0-18.0); Mean Corpuscular HGB Conc 34.7 g/dl (32-36); Mean Corpuscular Hemoglobin 31.8 pg (26-34); Mean Corpuscular Volume 91.7 fl (80-100); Mean Platelet Volume 10.1 fl (7.4-10.4); Platelet Count Result 212 k/mm3 (150-375); Red Blood Count 3.74 M/mm3 (4.6-6.20); Red Cell Distribution Width 13.3 % (11.5-14.5); White Blood Count 8.8 K/mm3 (4.5-10.0)
[2021-02-18 07:07] LABS: Anion Gap 7 mmol/L (8-16); Blood Urea Nitrogen 13 mg/dL (9-20); Carbon Dioxide 28 mmol/L (22-30); Chloride 98 mmol/L (98-107); Estimated CRCL calculation 71 ml/min; Estimated Glomerular Filt Rate > 60; Glucose 101 mg/dL (65-110); Magnesium 2.1 mg/dL (1.6-2.3); Potassium 3.4 mmol/L (3.4-5.0); Sodium 133 mmol/L (137-145)
[2021-02-18] MEDS: ASPIRIN 81 MG CHEWABLE TABLET PO (07:28)
[2021-02-18] MEDS: CLOPIDOGREL BISULFATE 75 MG TABLET PO (08:32)
[2021-02-18] MEDS: ROSUVASTATIN 10 MG TABLET 20 MG PO (08:33)
[2021-02-18] MEDS: PANTOPRAZOLE 40 MG TABLET PO (08:33)
[2021-02-18] MEDS: carvediloL 3.125 MG TABLET PO (08:33)
--- NOTE | 2021-02-18 10:16 | PM.DS ---
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 ECG on arrival was consistent with acute anterior wall UT and he was seen in the emergency room brought emergently to the cardiac catheterization lab. Angiographically the patient was found to have fairly extensive diffuse coronary disease with ectatic dilatation of the proximal LAD as well as the majority of the right coronary artery. The culprit lesion was a 100% occlusion of the mid LAD which was distal to the area of proximal ectasia and of more normal size. Emergency PCI was carried out including angioplasty, buddhist of flow with slow reflow phenomenon this was addressed with intracoronary adenosine, intracoronary Integrilin as well as intracoronary verapamil. Following this the target lesion was stented using an [employer] drug-eluting stent with a good anatomical result. He was transferred to the ICU where post UT recovery was initiated and then transferred to the floor. The patient had very low left ventricular ejection fraction with anterior akinesis and anteroapical dyskinesis ejection fraction was about 25% by echo. He was kept in the hospital an additional couple of days because of concerning regarding asymptomatic hypotension. He was placed on modest doses of carvedilol and losartan ultimately the losartan was discontinued and the carvedilol was at very modest dose and his blood pressure was now normalized and he is essentially asymptomatic. Initial dual anti-platelet therapy with aspirin and Brilinta was changed to aspirin and clopidogrel for financial reasons. Today he is ambulatory and appears to be a good candidate for discharge. The patient [place] [facility] [place] and plans to receive his ongoing care at the [facility] in [place]. 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 Status at Discharge Functional status at discharge: independent ambulation Time Spent with Patient Time attestation: Total time spent providing and/or coordinating discharge services: Time spent: Greater than 30 minutes Exam Const: General: comfortable and no acute distress Other: Well-developed well-nourished white male somewhat unkempt st otherwise no apparent distress HENMT: Mouth: Yes moist mucous membranes Eyes: Sclera: sclerae normal Pupils: Equal, round and reactive pupils present Neck: Neck: supple and no JVD Other: Carotid upstrokes are intact no bruits are audible Resp: Effort & Inspection: normal respiratory effort Other: Breath sounds somewhat diminished otherwise clear bilaterally Cardio: Rate: regular rate Rhythm: regular rhythm Other: PMI difficult to palpate no audible murmur or gallop GI: GI Palp: Yes Soft to palpation Auscultation: normal bowel sounds Skin: General skin exam: normal color Neuro: Other: Normal cognition Extrem: General: normal to inspection DS: Data Data Completed and Pending Labs on day of discharge: Labs from last 24 hours 02/18/21 02/18/21 06:15 06:15 WBC 8.8 RBC 3.74 L Hgb 11.9 L Hct 34.3 L MCV 91.7 MCH 31.8 MCHC 34.7 RDW 13.3 Plt Count 212 MPV 10.1 Sodium 133 L Potassium 3.4 Chloride 98 Carbon Dioxide 28 Anion Ga
--- NOTE | 2021-02-18 12:48 | PC.NURSE ---
Discharge instructions given to patient. Patient discharged to [employer] headed to [place] to catch flight to [place]. Meds sent home with patient: albuterol inhaler, cepacol lozenge, nitro pills, and two doses of Coreg (requested per Dr. Rosangela Flower). Patient verbalized understanding of all discharge instructions.
== END 2021-02-18 12:30 | disposition home or self-care (01) | DRG 246 ==
LOC: ANHED 12:57 → ANHICU 13:01 → ANHCPC 02-13 15:59
PROVIDERS: Internal Medicine; Admitting Provider Specialist; Emergency Provider Emergency Medicine; Visit Provider Specialist
PROC: 4A023N7 Measurement of Cardiac Sampling and Pressure, Left Heart, Percutaneous Approach (ICD-10-PCS; CPT 93452; principal; 2021-02-12 12:55)
PROC: 027035Z Dilation of Coronary Artery, One Artery with Two Drug-eluting Intraluminal Devices, Percutaneous Approach (ICD-10-PCS; 2021-02-12 12:55)
DX: I21.09 ST elevation (STEMI) myocardial infarction involving other coronary artery of anterior wall (principal); I50.21 Acute systolic (congestive) heart failure; J81.1 Chronic pulmonary edema; L76.32 Postprocedural hematoma of skin and subcutaneous tissue following other procedure; I25.2 Old myocardial infarction; I45.10 Unspecified right bundle-branch block; I50.9 Heart failure, unspecified; I25.5 Ischemic cardiomyopathy; Z20.822 Contact with and (suspected) exposure to COVID-19; Y84.0 Cardiac catheterization as the cause of abnormal reaction of the patient, or of later complication, without mention of misadventure at the time of the procedure; Y92.230 Patient room in hospital as the place of occurrence of the external cause; I25.10 Atherosclerotic heart disease of native coronary artery without angina pectoris; Z79.82 Long term (current) use of aspirin; I95.9 Hypotension, unspecified; E87.6 Hypokalemia
CPT/HCPCS: 36415; 71045; 71046; 80048; 80053; 80061; 83735; 83880; 84484; 85025; 85027; 85610; 85730; 86850; 86900; 86901; 87426; 93005; 93306; 93458; 93926; 99291; A9270; C1725; C1757; C1769; C1874; C1887; C1894; C9606; C9803; J0153; J0583; J1327; J1644; J1940; J2250; J2270; J2405; J3010; J7030; J7040